=== PATIENT | male | born 2000 | race African-American/Black ===

== ENCOUNTER 2024-01-01 13:02 | Emergency (ER) | payer OTHER, SELFPAY ==
[2024-01-01 13:04] VITALS: BP 135/74; PULSE 68; RESP 20; TEMP 36.4; O2SAT 99; BMI 36.3
--- NOTE | 2024-01-01 13:07 | DI.RAD.S_ITS ---
PROCEDURE: XR KNEE LT 1TO2V INDICATIONS: FELT POP, LIMITED ROM, PAIN TECHNIQUE: 3 views of the knee were acquired. COMPARISON: None. FINDINGS: Bones: No fractures but there is a lateral patellar dislocation from the trochlear groove dislocations. No suspicious bony lesions. Soft tissues: No joint effusion. No suspicious soft tissue calcifications. IMPRESSION: Lateral patellar dislocation. No fracture found. Dictated by: Prashant Stoner M.D. on 01/01/2024 at 13:53 Approved by: Prasahnt Stoner M.D. on 01/01/2024 at 13:54
--- NOTE | 2024-01-01 13:10 | ED.LOWEXIN ---
HPI - Extremity Injury (Lower) General Chief Complaint: Extremity Injury, Lower Stated Complaint: Knee injury / ? dislocation Time Seen by Provider: 01/01/24 13:03 History of Present Illness HPI Narrative: 23-year-old male with no reported past medical history presents by EMS from his place of work for knee injury. Patient was pushing a heavy object when his knee popped out of place and dislocated. Reports extreme pain. He was placed in a splint by paramedics and transported for further evaluation. Patient states that he has had brief episodes where his kneecap seemed to going to place, and he was seen by Physical therapy, however no further recommendations were made. Patient reporting pain in his knee, denies numbness or tingling in his lower extremity. Related Data Previous Rx's Medication Instructions Recorded hydrocodone 5 mg-acetaminophen 325 1 tab PO Q8H PRN pain #7 tabs 01/01/24 mg tablet methocarbamol 500 mg tablet 500 mg PO TID #20 tabs 01/01/24 Review of Systems Review of Systems Narrative: Negative except as noted above Patient History Social History Smoking Status: Never smoker Exam Initial Vital Signs Initial Vital Signs: Vital Signs Temperature 97.6 F 01/01/24 13:04 Pulse Rate 68 01/01/24 13:04 Respiratory Rate 20 01/01/24 13:04 Blood Pressure 135/74 01/01/24 13:04 Pulse Oximetry 99 01/01/24 13:04 Oxygen Delivery Method Room Air 01/01/24 13:04 Const: Awake, alert, uncomfortable, in pain MSK: Knee flexed, obvious deformity to kneecap, unable to move knee due to pain, palpable DP pulses, able to wiggle toes, sensation intact Skin: Warm, Dry, intact, no rashes Neuro: AO x3, CN II-XII grossly intact, moves all extremities Procedures Orthopedic Joint Reduction Joint #1: Side: left Joint Reduction Location: knee/patella Analgesia: other (dilauded/ativan) Technique used: traction/counter-traction and direct manipulation Post-reduction neuro exam: intact and no change Post-reduction vascular: intact and no change Post Reduction X-Ray Obtained: No Splint Applied: Yes Patient Tolerated Procedure: Well and No complications Course Orders Ordered: ED Orders 01/01/24 13:07 XR knee LT 1to2V Stat Discontinued Medications Hydromorphone HCl (Hydromorphone 1 Mg Inj) 1 mg IV NOW ONE Stop: 01/01/24 13:31 Last Admin: 01/01/24 13:51 Dose: 1 mg Documented By: ANGELICA Ketorolac Tromethamine (Ketorolac 30 Mg/Ml Vial) 15 mg IV NOW ONE Stop: 01/01/24 13:10 Last Admin: 01/01/24 13:12 Dose: 15 mg Documented By: WILY Lorazepam (Lorazepam 2 Mg/Ml Inj) 2 mg IV NOW ONE Stop: 01/01/24 13:37 Last Admin: 01/01/24 13:53 Dose: 2 mg Vital Signs Vital signs: Vital Signs - 8 hr 01/01/24 13:04 01/01/24 13:58 01/01/24 14:00 Temperature 97.6 F Pulse Rate 68 74 87 Respiratory Rate 20 16 Blood Pressure 135/74 143/65 H Pulse Oximetry 99 95 Oxygen Delivery Method Room Air Room Air MDM - Extremity Injury (Lower) Differential Diagnosis Differential diagnosis: Likely ankle sprain and strain, acute internal derangement of knee and fracture of femur MDM Narrative Medical decision making narrative: Patella versus knee joint dislocation. Neurovascularly intact on arrival, however exam limited due to patient's positioning and pain. X-rays confirm lateral patellar dislocation. Patient was given pain and relaxation medications and subsequently the knee was able to be reduced with gentle traction and extension of the joint. Patient is subsequently placed in knee immobilizer and given crutches. Counseled on the importance of following up with Orthopedic surgery. Referral provided. ED return precautions discussed at bedside. Patient expressed understanding of the plan and is in agreement at this time. All questions answered at the time of discharge. Discharge Plan Departure Patient Disposition: Home Clinical Impression: Dislocation of patella, left, closed Qualifiers: Encounter type: initial encounter Qualified Code(s): S83.005A - Unspecified dislocation of left patella, initial encounter Instructions: How to Use a Knee Immobilizer, DI for Patellar Dislocation Activity Restrictions/Additional Instructions: You were seen today for a dislocated patella or kneecap. We reduced this using pain medications. Keep the knee immobilizer in place until you follow up with Orthopedic surgery, a referral is in your paperwork. Pain medications have been sent to the [facility] base pharmacy Prescriptions: New methocarbamol 500 mg tablet 500 mg PO TID Qty: 20 0RF hydrocodone-acetaminophen 5-325 mg tablet 1 tab PO Q8H PRN (Reason: pain) Qty: 7 0RF Referrals: Provider,Deuce KITCHEN [Primary Care Provider] - Julian Ward MD [Physician] - Stand Alone Forms: Patient Portal/API
[2024-01-01] MEDS: KETOROLAC 30 MG/ML VIAL 15 MG IV (13:12)
[2024-01-01] MEDS: HYDROMORPHONE 1 MG INJ IV (13:51)
[2024-01-01] MEDS: LORazepam 2 MG/ML INJ IV (13:53)
[2024-01-01 13:58] VITALS: PULSE 74; O2SAT 95
[2024-01-01 14:00] VITALS: BP 143/65; PULSE 87; RESP 16
[2024-01-01 14:14] VITALS: BP 143/65; PULSE 76; O2SAT 95
[2024-01-01 14:30] VITALS: BP 135/63; PULSE 88; O2SAT 97
== END 2024-01-01 15:08 | disposition home or self-care (01) ==
PROVIDERS: Emergency Provider Emergency Medicine
DX: S83.015A Lateral dislocation of left patella, initial encounter (principal); X50.9XXA Other and unspecified overexertion or strenuous movements or postures, initial encounter
CPT/HCPCS: 27560; 73560; 96374; 96375; 99283; 99284; J1170; J1885; J2060